=== PATIENT | male | born 1970 | race Caucasian/White ===

== ENCOUNTER 2019-04-03 14:38 | Day surgery (SDC) | payer BC, OTHER ==
[2019-04-03] MEDS ORDERED: NS 0.9% 1000 ML** 1,000 ML IV ONE (16:54)
--- NOTE | 2019-04-03 17:01 | ED ---
Abdominal Pain/Male - HPI Summary HPI Summary: This patient is a 48 year old M sent to ED from urgent care with a chief complaint of abdominal pain since yesterday morning. Yesterday, the patient woke up with diffuse umbilical pain. Today, the pain has migrated and localized to the RLQ. The patient rates the pain 3/10 in severity. Symptoms aggravated by nothing. Symptoms alleviated by nothing. Patient reports nausea. Patient denies fever, D/V. PMHx of Barretts esophagus. Denies surgeries. He quit smoking, occasional drinks alcohol, does not use drugs. FHx of colon cancer and melanoma. - History of Current Complaint Chief Complaint: EDAbdPain Stated Complaint: ABD PAIN PER PT Time Seen by Provider: 04/03/19 16:54 Hx Obtained From: Patient Onset/Duration: Gradual Onset, Lasting Days - Since yesterday, Still Present, Worse Since - Localized to RLQ Timing: Constant Severity Currently: Mild Pain Intensity: 3 Pain Scale Used: 0-10 Numeric Location: Diffuse - Initially, Discrete At: RLQ - Now localized Radiates: No Aggravating Factor(s): Nothing Alleviating Factor(s): Nothing Associated Signs And Symptoms: Positive: Nausea. Negative: Fever, Vomiting, Diarrhea - Allergies/Home Medications Allergies/Adverse Reactions: Allergies Allergy/AdvReac Type Severity Reaction Status Date / Time No Known Allergies Allergy Verified 06/27/13 17:03 Home Medications: Home Medications Pantoprazole TAB * [Protonix TAB*] 40 mg PO DAILY 04/03/19 [History Confirmed ] PMH/Surg Hx/FS Hx/Imm Hx Previously Healthy: No GI History: Reports: Hx Gastroesophageal Reflux Disease - Barretts esophageal reflux, Hx Hiatal Hernia - Surgical History Surgery Procedure, Year, and Place: Denies Infectious Disease History: No Infectious Disease History: Denies: Traveled Outside the [place] in Last 30 Days - Family History Known Family History: Positive: Other - Colon cancer and melanoma - Social History Alcohol Use: Rare Hx Substance Use: No Substance Use Type: Reports: None Hx Tobacco Use: Yes Smoking Status (MU): Former Smoker Have You Smoked in the Last Year: No Review of Systems Negative: Fever Positive: Abdominal Pain - RLQ, Nausea. Negative: Vomiting, Diarrhea All Other Systems Reviewed And Are Negative: Yes Physical Exam - Summary Physical Exam Summary: VITAL SIGNS: Reviewed. GENERAL: Patient is a well-developed and nourished male who is lying comfortable in the stretcher. Patient is not in any acute respiratory distress. HEAD AND FACE: Normocephalic and atraumatic. EYES: PERRLA, EOMI x 2, No injected conjunctiva. EARS: Hearing grossly intact. Ear canals and tympanic membranes are WNL. MOUTH: Oropharynx within normal limits. NECK: Supple, trachea is midline, no adenopathy, no JVD. CHEST: Symmetric, no tenderness at palpation LUNGS: Clear to auscultation bilaterally. No wheezing or crackles. CVS: RRR, S1 and S2 present, no murmurs or gallops appreciated. ABDOMEN: RLQ tenderness EXTREMITIES: FROM in all major joints, no edema, no cyanosis or clubbing. NEURO: Alert and oriented x 3. No acute neurological deficits. Speech is normal. SKIN: Dry and warm. Triage Information Reviewed: Yes Vital Signs On Initial Exam: Initial Vitals Temp Pulse Resp BP Pulse Ox 98.6 F 74 16 134/86 98 04/03/19 14:42 04/03/19 14:42 04/03/19 14:42 04/03/19 14:42 04/03/19 14:42 Vital Signs Reviewed: Yes Diagnostics - Vital Signs Vital Signs Temp Pulse Resp BP Pulse Ox 04/03/19 16:51 98.7 F 64 16 128/76 96 04/03/19 14:42 98.6 F 74 16 134/86 98 - Laboratory Result Diagrams: 04/03/19 17:08 04/03/19 17:08 Lab Statement: Any lab studies that have been ordered have been reviewed, and results considered in the medical decision making process. - CT A/P CT Interpretation Completed By: Radiologist Summary of CT Findings: CT findings of early appendicitis. Dr. England has reviewed this radiology report. Abdominal Pain Male Course/Dx - Course Assessment/Plan: This patient is a 48 year old M sent to ED from urgent care with a chief complaint of abdominal pain since yesterday morning. Yesterday, the patient woke up with diffuse umbilical pain. Today, the pain has migrated and localized to the RLQ. The patient rates the pain 3/10 in severity. Symptoms aggravated by nothing. Symptoms alleviated by nothing. Patient reports nausea. Patient denies fever, D/V. PMHx of Barretts esophagus. Denies surgeries. He quit smoking, occasional drinks alcohol, does not use drugs. FHx of colon cancer and melanoma. Blood work without any significant abnormality except for creatinine of 1.23, glucose 111. Abdominopelvic CT impression: Early appendicitis. I discussed my physical exam and findings with Dr. Obando and he accepted patient for admission with dx of appendicitis. The patient is hemodynamically stable alert and oriented 3. Patient understands and agrees with this plan. - Diagnoses Provider Diagnoses: Appendicitis - Provider Notifications Discussed Care Of Patient With: Neil bOando Time Discussed With Above Provider: 20:35 Instructed by Provider To: Admit As Inpatient - Discussed patient case with Dr. Obando, surgeon, who accepted the patient for admission. Discharge - Sign-Out/Discharge Documenting (check all that apply): Patient Departure - Admit Patient Received Moderate/Deep Sedation with Procedure: No - Discharge Plan Condition: Good Disposition: ADMITTED TO [facility] - Billing Disposition and Condition Condition: GOOD Disposition: Admitted to [facility] - Attestation Statements Document Initiated by Samanthae: Yes Documenting Scribe: Alex Thacker Provider For Whom Yossi is Documenting (Include Credential): Reyes England MD Scribe Attestation: I, Alex Thacker, scribed for Reyes England MD on 04/04/19 at 1013. Scribe Documentation Reviewed: Yes Provider Attestation: The documentation as recorded by the orvilleibeAlex accurately reflects the service I personally performed and the decisions made by me, Reyes England MD Status of Scribe Document: Viewed
[2019-04-03 17:16] LABS: ABS Lymphocytes 1.4 10^3/ul (1.0-4.8); ABS Monocytes 0.5 10^3/ul (0-0.8); ABS Neutrophils 2.8 10^3/ul (1.5-7.7); Eosinophil % 0.7 %; Hematocrit 43 % (42-52); Hemoglobin 14.6 g/dL (14.0-18.0); Mean Corpuscular HGB Conc 34 g/dL (31-36); Mean Corpuscular Hemoglobin 33 pg (27-31); Mean Corpuscular Volume 97 fL (80-94); Mean Platelet Volume 7.2 fL (7.4-10.4); Nucleated Red Blood Cells % 0.1; Platelet Count 252 10^3/uL (150-450); Red Blood Count 4.47 10^6 /uL (4.18-5.48); Red Cell Distribution Width 14 % (10-15); White Blood Count 4.7 10^3/uL (3.5-10.8)
[2019-04-03 17:32] LABS: Albumin 4.4 g/dL (3.2-5.2); Albumin/Globulin Ratio 1.4 (1-3); BUN/Creatinine Ratio 8.9 (8-20); C Reactive Protein 3.65 mg/L (<8.01); Calcium 9.6 mg/dL (8.6-10.3); EGFR African American 76.3 (>60); EGFR Non-African American 63.1 (>60); Globulin 3.2 g/dL (2-4); Magnesium 2.3 mg/dL (1.9-2.7); Potassium 3.7 mmol/L (3.5-5.0); Total Bilirubin 0.4 mg/dL (0.2-1.0); Total Protein 7.6 g/dL (6.4-8.9)
[2019-04-03] MEDS ORDERED: Iohexol 300* (CONTRAST) 10 ML SDV IV ONE (18:27)
[2019-04-03] MEDS ORDERED: Dexamethasone IV* 4 MG/ML 1 ML (4 MG) ONE (21:36)
[2019-04-03] MEDS ORDERED: Propofol* 10 MG/ML 20 ML BTL ONE (21:36)
[2019-04-03] MEDS ORDERED: Ondansetron INJ* 2 MG/ML VIAL ONE ×2 (21:36→23:53)
[2019-04-03] MEDS ORDERED: Midazolam* 1 MG/ML 5 ML VIAL (5 MG) ONE (21:36)
[2019-04-03] MEDS ORDERED: fentaNYL* 50 MCG/ML 2 ML VIAL (100 MCG VIAL) ONE (21:36)
[2019-04-03] MEDS ORDERED: Cisatracurium* 2 MG/ML MDV 5 ML ONE (21:36)
[2019-04-03] MEDS ORDERED: Lidocaine 2% PF * 5 ML VIAL ONE (21:36)
[2019-04-03] MEDS ORDERED: Succinylcholine* 20 MG/ML 10 ML VIAL ONE (21:36)
[2019-04-03] MEDS ORDERED: Bupivacaine 0.25% EPI 200,000* 30 ML SDV ONE (21:46)
[2019-04-03] MEDS ORDERED: ceFAZolin 2 GM PREMIX in ORs 2 GM/50 ML BAG ONE (21:57)
--- NOTE | 2019-04-03 22:05 | HP ---
CC: Primary care doctor; [facility] HISTORY AND PHYSICAL: DATE OF ADMISSION: 04/03/19 HISTORY AND PHYSICAL ILLNESS: Mr. Crane is a 48-year-old gentleman who presented to the emergency ro om with 2-day history of worsening nausea and abdominal pain this morning. Abdominal pain is mostly in the mid abdomen and went to the right side localizing later in the day. The patient denies any pr evious similar symptoms. He has not vomited. He was constipated, but treated this with a local dali dy. He has had no fevers or chills. PAST MEDICAL HISTORY: Gastroesophageal reflux disease and Forrester's esophagus. PAST SURGICAL HISTORY: No abdominal surgeries. MEDICATIONS: Pantoprazole. ALLERGIES: He has got no known drug allergies. FAMILY HISTORY: Noncontributory. SOCIAL HISTORY: Lives with his and child. He is a nonsmoker. He works in IT at [employer]. REVIEW OF SYSTEMS: No fevers, no chills, nausea, but no vomiting. No shortness of breath or chest p ain. Good exercise tolerance. No cerebrovascular disease, no cardiovascular disease, GERD as descri bed. He has undergone EGDs in the past. Constipation, which is not common for him. No dysuria. No endocrine disorders. No bleeding or clotting disorders. PHYSICAL EXAMINATION GENERAL: He is afebrile. Alert and oriented x3, in no apparent distress. VITAL SIGNS: Stable. HEAD, EYES, EARS, NOSE, THROAT: Normocephalic, atraumatic. Sclerae anicteric. Mucous membranes are moist. NECK: No lymphadenopathy. LUNGS: Clear. ABDOMEN: Soft, mild distention, tender at McBurney's point without rebound, without guarding. No sc ars or masses noted. Small umbilical hernia is appreciated. RECTAL: Exam not performed. EXTREMITIES: Within normal limits. DIAGNOSTIC STUDIES/LAB DATA: Labs reviewed. CT scan reviewed. Both images and report, mildly dilated appendix with minimal inflammatory changes, but no contrast that had reached the cecum, enters into the appendix. Radiologist read it as acute appendicitis and I agree with this finding. There is no free air or free fluid. IMPRESSION: Early acute appendicitis. Recommendation is laparoscopic appendectomy. Outlined the de tails of the procedure, going over the risks, benefits, and alternatives. We spoke of the possible c omplications, which include, but not limited to bleeding, infection, abscess formation, injury to adj acent organs, need for open procedure, additional procedures. The patient signed consent, take him t o the operating room urgently for a laparoscopic appendectomy. He will receive preoperative antibioti . [id number]/[facility] #: [id number]
[2019-04-03] MEDS ORDERED: Ketorolac INJ* 30 MG/ML 1 ML VIAL ONE (22:39)
[2019-04-03] MEDS ORDERED: Neostigmine Methylsulfate* 1 MG/ML 10 ML VIAL (1 mg/ml) ONE (22:51)
[2019-04-03] MEDS ORDERED: Glycopyrrolate IV* 0.2 MG/ML 1 ML VIAL ONE (22:51)
[2019-04-03] MEDS ORDERED: oxyCODONE/Acetamin 5/325 MG* TAB PO PRN (23:04)
[2019-04-03] MEDS ORDERED: Ondansetron INJ* 2 MG/ML VIAL IV PRN ×2 (23:04→23:10)
--- NOTE | 2019-04-03 23:04 | BRIEFOPN ---
Brief Operative Note - Surgery Procedures: Procedures Pre-OP Diagnoses: acute appendicitis Post-op Diagnosis: same Procedure: Laparoscopic appendectomy, umbilical hernia repair Surgeon: Gisella Asst: none Anethesia: ELTON EBL: minimal IVF: crystalloid Specimen: appendix Drains: none
[2019-04-03] MEDS ORDERED: fentaNYL* 50 MCG/ML 2 ML VIAL (100 MCG VIAL) IV PRN (23:10)
[2019-04-03] MEDS ORDERED: Naloxone* 0.4 MG/ML 1 ML VIAL IV PRN (23:10)
[2019-04-03] MEDS ORDERED: Lactated Ringers 1000 ML Bag* 1,000 ML IV SCH (23:45)
[2019-04-03] MEDS ORDERED: oxyCODONE/Acetamin 5/325 MG* TAB ONE (23:52)
[2019-04-03 23:57] VITALS: BP 132/48
--- NOTE | 2019-04-04 00:07 | OP ---
CC: Primary care doctor, Dr. Knapp * DATE OF OPERATION: 04/03/19 - [facility] DATE OF : 72 SURGEON: Neil Obando MD POLICY CHECKER: None. ANESTHESIOLOGIST: Dr. Santos. ANESTHESIA: General anesthesia. PRE-OP DIAGNOSIS: Acute appendicitis. POST-OP DIAGNOSIS: Acute appendicitis. OPERATIVE PROCEDURE: Laparoscopic appendectomy, umbilical hernia repair. ESTIMATED BLOOD LOSS: Minimal blood loss. FLUIDS: Crystalloid fluid given. SPECIMEN: Appendix. DESCRIPTION OF PROCEDURE: The patient was taken to the operating room, placed on the operating table in supine position. Preoperative antibiotics were given. Sequential devices were placed on bilateral lower extremities and general anesthesia was induced. The patient's abdomen was clipped off hair and prepped and draped in standard surgical fashion. A time-out was performed. An infraumbilical incision was made. This was deepened down through skin down on top of umbilical hernia defect. The fascia was elevated, incised to encompass 12 mm trocar, which was then inserted. The patient abdomen was allowed to insufflate to a pressure of 15 mmHg. The patient tolerated the insufflation well. Laparoscope was inserted through this and the bowel appeared viable and pink. There was no free fluid. Additional trocars were then placed in the following position: A 5 mm in the suprapubic area and 5 mm at the left lower quadrant. Table was repositioned and the appendix was identified. This was indurated, nonperforated, nongangrenous, consistent with preoperative diagnosis. Sharp and blunt dissections were carried out free up the base of the appendix. A window was made at the base of the appendix through healthy issue and a 30-mm odell DOUG stapling device was fired across this. The mesoappendix was then taken with a 45 mm ramsay DOUG stapling device. The appendix was placed in the endoscopic retrieval bag. Review of staple line showed no bleeding or enteric contents. The appendix was then removed from the umbilical port site and the trocar was removed. Abdomen was allowed to collapse. The fascia at the umbilical defect, which was approximately a centimeter, was reapproximated with a [id number] utilizing a 0 Prolene suture. The wound was then irrigated and all 3 skin incisions were reapproximated with 4-0 Monocryl subcuticular sutures followed by Steri-Strips, sterile dressing. The patient tolerated the procedure well and was woken up and transferred to the PACU in stable condition for admission to the hospital due to the time of the procedure. [id number]/[facility] #: [id number] JT
== END 2019-04-04 00:30 | disposition home or self-care (01) ==
LOC: ED 14:38 → OR 21:56
PROVIDERS: ATTEND Surgery
DX: K35.80 Unspecified acute appendicitis (principal); K42.9 Umbilical hernia without obstruction or gangrene; K21.9 Gastro-esophageal reflux disease without esophagitis; K22.70 Barrett's esophagus without dysplasia
CPT/HCPCS: 36415; 74177; 80053; 82550; 83605; 83690; 83735; 85025; 86140; 88304; 99285; A9270-GY; C1776; J0330; J0690; J1100; J1885; J2250; J2405; J2704; J2710; J3010; Q9967

== ENCOUNTER 2019-04-10 15:57 | Emergency (ER) | payer BC ==
--- NOTE | 2019-04-10 17:48 | ED ---
Lower Extremity - HPI Summary HPI Summary: 48-year-old male presents with left calf pain today. He states he had surgery for appendicitis recently. No family history of blood clots. Denies any chest pain or shortness breath. the pain is just located in his left calf. Denies any numbness or tingling. No injury. Is able to ambulate. Has not taking anything for his symptoms. Denies any fevers. - History of Current Complaint Chief Complaint: EDExtremityLower Stated Complaint: LT CALF PAIN /SX 7DAYS AGO PER PT Time Seen by Provider: 04/10/19 16:32 Pain Intensity: 4 - Allergies/Home Medications Allergies/Adverse Reactions: Allergies Allergy/AdvReac Type Severity Reaction Status Date / Time No Known Allergies Allergy Verified 04/10/19 16:03 PMH/Surg Hx/FS Hx/Imm Hx Endocrine/Hematology History: Denies: Hx Diabetes Cardiovascular History: Denies: Hx Hypertension GI History: Reports: Hx Gastroesophageal Reflux Disease - Barretts esophageal reflux, Hx Hiatal Hernia - Surgical History Surgery Procedure, Year, and Place: Denies Infectious Disease History: No Infectious Disease History: Denies: Traveled Outside the [place] in Last 30 Days - Family History Known Family History: Positive: Other - Colon cancer and melanoma - Social History Alcohol Use: Rare Hx Substance Use: No Substance Use Type: Reports: None Hx Tobacco Use: Yes Smoking Status (MU): Former Smoker Have You Smoked in the Last Year: No Review of Systems Negative: Fever Negative: Chest Pain Negative: Shortness Of Breath Positive: Myalgia - left calf pain All Other Systems Reviewed And Are Negative: Yes Physical Exam Triage Information Reviewed: Yes Vital Signs On Initial Exam: Initial Vitals Temp Pulse Resp BP Pulse Ox 98.0 F 68 14 134/70 98 04/10/19 15:59 04/10/19 15:59 04/10/19 15:59 04/10/19 15:59 04/10/19 15:59 Vital Signs Reviewed: Yes Appearance: Positive: Well-Appearing Skin: Positive: Warm, Dry Head/Face: Positive: Normal Head/Face Inspection Eyes: Positive: Normal, Conjunctiva Clear ENT: Positive: Pharynx normal Respiratory/Lung Sounds: Positive: Clear to Auscultation, Breath Sounds Present Cardiovascular: Positive: Normal, RRR Abdomen Description: Positive: Nontender, Soft, Other: - dressing intact on abdomen Bowel Sounds: Positive: Present Musculoskeletal: Positive: Strength/ROM Intact - left leg, Other - good pulses, tenderness left calf. Negative: Edema Left Neurological: Positive: Normal Psychiatric: Positive: Normal Diagnostics - Vital Signs Vital Signs Temp Pulse Resp BP Pulse Ox 04/10/19 15:59 98.0 F 68 14 134/70 98 - Laboratory Lab Statement: Any lab studies that have been ordered have been reviewed, and results considered in the medical decision making process. - Ultrasound No standard instances Ultrasound Interpretation Completed By: Radiologist Summary of Ultrasound Findings: IMPRESSION: NO LEFT LOWER EXTREMITY DEEP VEIN THROMBOSIS Lower Extremity Course/Dx - Course Course Of Treatment: 48-year-old male presents with left calf pain today. He states he had surgery for appendicitis recently. No family history of blood clots. Denies any chest pain or shortness breath. the pain is just located in his left calf. Denies any numbness or tingling. No injury. Is able to ambulate. Has not taking anything for his symptoms. Denies any fevers. On exam tenderness left calf. Neurovascular intact. Ultrasound shows no DVT. Told to ice and elevate. Follow up primary if no improvement. Patient understands agrees plan. - Diagnoses Differential Diagnosis/HQI/PQRI: Positive: DVT, Sprain, Strain Provider Diagnoses: Pain of left calf Discharge - Sign-Out/Discharge Documenting (check all that apply): Patient Departure Patient Received Moderate/Deep Sedation with Procedure: No - Discharge Plan Condition: Good Disposition: HOME Patient Education Materials: Leg Pain (ED) Referrals: Barry Knapp MD [Primary Care Provider] - Additional Instructions: Ice Elevate Take Tylenol for pain every 6 hours Follow up with primary within 5 days Return to ED if develop any new or worsening symptoms - Billing Disposition and Condition Condition: GOOD Disposition: Home
[2019-04-10 17:49] VITALS: BP 136/81
== END 2019-04-10 17:48 | disposition home or self-care (01) ==
LOC: ED 15:57
DX: M79.662 Pain in left lower leg (principal); Z87.891 Personal history of nicotine dependence
CPT/HCPCS: 99282

== ENCOUNTER 2019-09-28 09:35 | Emergency (ER) | payer BC ==
--- NOTE | 2019-09-28 11:47 | ED ---
Throat Pain/Nasal Congestion - HPI Summary HPI Summary: Patient is a 48 year old male who presents with 2.5 months of throat pain. Patient states that initially he had post-nasal drip, rhinorrhea, and cough. After 6 weeks he noticed the symptoms were not improving and saw his PCP who diagnosed a viral illness. Patient states he still feels like he "has something the size of a corn kennel behind his watkins apple" that is causing his voice to sound hoarse. Associated with dysphagia, liquids and solids. States this has been worsening with needing to flex at the neck to be able to swallow. Endorses LAD bilaterally. Denies fever, night sweats, hx of thyroid problems or associated swelling. Denies SOB, chest pain. Patient has history of Forrester' s esophagus. Has appointment with ENT in 2 weeks, but is very worried about leaving the ED today without imaging. - History of Current Complaint Chief Complaint: EDThroatPain Time Seen by Provider: 09/28/19 11:10 Hx Obtained From: Patient Onset/Duration: Still Present Severity: Mild Associated Signs And Symptoms: Positive: Dysphagia, FB Sensation, Hoarseness. Negative: Drooling, Wheezing, Sinus Discomfort, Nasal Discharge Cough: Nonproductive Related History: Other (Noted In Comments) - Forrester's esophagus - Epiglottits Risk Factors Epiglottis Risk Factors: Negative - Allergies/Home Medications Allergies/Adverse Reactions: Allergies Allergy/AdvReac Type Severity Reaction Status Date / Time No Known Allergies Allergy Verified 04/10/19 16:03 PMH/Surg Hx/FS Hx/Imm Hx Previously Healthy: Yes Endocrine/Hematology History: Denies: Hx Diabetes Cardiovascular History: Denies: Hx Hypertension GI History: Reports: Hx Gastroesophageal Reflux Disease - Barretts esophageal reflux, Hx Hiatal Hernia - Surgical History Surgery Procedure, Year, and Place: Denies - Immunization History Hx Pertussis Vaccination: No Immunizations Up to Date: Yes Infectious Disease History: No Infectious Disease History: Denies: Traveled Outside the [place] in Last 30 Days - Family History Known Family History: Positive: Other - Colon cancer and melanoma - Social History Occupation: Employed Full-time Lives: With Family Alcohol Use: Rare Hx Substance Use: No Substance Use Type: Reports: None Hx Tobacco Use: Yes Smoking Status (MU): Never Smoked Tobacco Have You Smoked in the Last Year: No Review of Systems Constitutional: Negative Negative: Fever, Chills, Fatigue Eyes: Negative ENT: Negative Positive: Sore Throat - feeling of FB in throat, Ear Ache - intermittent. Negative: Nasal Discharge Cardiovascular: Negative Negative: Palpitations, Chest Pain Respiratory: Negative Positive: Cough. Negative: Shortness Of Breath Gastrointestinal: Negative Negative: Abdominal Pain, Vomiting, Nausea Genitourinary: Negative Positive: no symptoms reported. Negative: burning, dysuria Musculoskeletal: Negative Negative: Myalgia Skin: Negative Negative: Rash Neurological: Negative Negative: Headache Psychological: Normal All Other Systems Reviewed And Are Negative: Yes Physical Exam Triage Information Reviewed: Yes Vital Signs On Initial Exam: Initial Vitals Temp Pulse Resp BP Pulse Ox 97.8 F 88 16 167/74 97 09/28/19 09:42 09/28/19 09:42 09/28/19 09:42 09/28/19 09:42 09/28/19 09:42 Appearance: Positive: Well-Appearing, No Pain Distress, Well-Nourished Skin: Positive: Warm, Skin Color Reflects Adequate Perfusion, Dry Head/Face: Positive: Normal Head/Face Inspection Eyes: Positive: Normal, EOMI, RADHA, Conjunctiva Clear. Negative: Discharge ENT: Positive: Normal ENT inspection, Hearing grossly normal, Pharynx normal, TMs normal, Hoarse voice, Uvula midline, Other - no signs of LAD or enlarged thyroid. Negative: Pharyngeal erythema, Nasal drainage, TM bulging, TM dull, TM red, Tonsillar swelling, Tonsillar exudate, Trismus, Muffled voice Neck: Positive: Supple, Nontender, No Lymphadenopathy Respiratory/Lung Sounds: Positive: Clear to Auscultation, Breath Sounds Present. Negative: Rales, Rhonchi, Stridor, Tracheal Deviation, Wheezes Cardiovascular: Positive: Normal, RRR, S1, S2. Negative: Murmur, Rub Abdomen Description: Positive: Nontender, Soft Bowel Sounds: Positive: Present Musculoskeletal: Positive: Normal Neurological: Positive: Normal Psychiatric: Positive: Normal, Affect/Mood Appropriate Procedures - Sedation Patient Received Moderate/Deep Sedation with Procedure: No Diagnostics - Vital Signs Vital Signs Temp Pulse Resp BP Pulse Ox 09/28/19 09:42 97.8 F 88 16 167/74 97 - Laboratory Result Diagrams: 09/28/19 12:28 Lab Statement: Any lab studies that have been ordered have been reviewed, and results considered in the medical decision making process. EENT Course/Dx - Course Course Of Treatment: 48-year-old male who presents with 2.5 months of throat pain, dysphagia, post-nasal drip. Denies fever. PMH of Forrester's esophagus. Throat non-erythematous without lesions/exudates. Uvula midline. No lymphadenopathy or swelling appreciated. Lungs CTA B/L. Ct neck soft tissue: IMPRESSION: 1. No mass is identified in the neck. Correlation with direct endoscopy of the hypopharynx/larynx on elective basis is recommended given its superior segment of the superficial mucosa. 2. No cervical lymphadenopathy by size criteria. patient already has f/u with ENT next week. - Differential Diagnoses Differential Diagnoses: URI/Bronchitis, Other - Goiter, achalasia, carcinoma, cervical LAD, thyroid problems, barretts, GERD, viral illness - Diagnoses Provider Diagnoses: Globus sensation Discharge ED - Sign-Out/Discharge Documenting (check all that apply): Patient Departure - Discharge Plan Condition: Stable Disposition: HOME Referrals: Gumaro Cabello MD [Medical Doctor] - Barry Knapp MD [Primary Care Provider] - Additional Instructions: Please follow up with ENT As discussed, nothing was found on todays CT exam I recommend further workup with ENT - Billing Disposition and Condition Condition: STABLE Disposition: Home
[2019-09-28 12:51] LABS: Albumin 4.9 g/dL (3.2-5.2); Albumin/Globulin Ratio 1.5 (1-3); EGFR African American 76.3 (>60); EGFR Non-African American 63.1 (>60); Globulin 3.2 g/dL (2-4); Potassium 4.4 mmol/L (3.5-5.0); Total Bilirubin 0.7 mg/dL (0.2-1.0); Total Protein 8.1 g/dL (6.4-8.9)
[2019-09-28] MEDS ORDERED: Iohexol 300* (CONTRAST) 10 ML SDV IV ONE (13:44)
[2019-09-28 14:42] VITALS: BP 156/85
== END 2019-09-28 14:37 | disposition home or self-care (01) ==
LOC: ED 09:35
DX: R44.8 Other symptoms and signs involving general sensations and perceptions (principal); R13.19 Other dysphagia; R07.0 Pain in throat; K22.70 Barrett's esophagus without dysplasia
CPT/HCPCS: 36415; 70491; 80053; 99282; Q9967